=== PATIENT | female | born 1960 | race Asian ===

== ENCOUNTER 2019-04-12 05:40 | Day surgery (SDC) | payer MEDICAID ==
[2019-04-05 16:14] LABS: HEMATOCRIT 41.2 % (36-48); HEMOGLOBIN 12.8 g/dL (12.0-16.0); MEAN CORPUSCULAR HEMOGLOBIN 21 pg (27-31); MEAN CORPUSCULAR HGB CONC 31 % (32-36); MEAN CORPUSCULAR VOLUME 68 fL (79.0-98.0); PLATELET COUNT (AUTO) 295 K/uL (130-430); RED BLOOD CELL COUNT(AUTO) 6.08 MIL/uL (4.2-6.2); RED CELL DISTRIBUTION WIDTH 15.5 % (9.0-15.0); WHITE BLOOD COUNT (AUTO) 9.2 K/uL (4.8-10.8)
[2019-04-05 16:23] LABS: CALCIUM 9.1 mg/dL (8.4-11.0); CREATININE 0.83 mg/dL (0.55-1.30); POTASSIUM 4.7 mmol/L (3.5-5.1)
[2019-04-12] VITALS (12 sets, daily range): BP systolic 124–138
[~2019-04-12] VITALS: Ht 157.5 cm; Wt 68.0 kg
[~2019-04-12 05:40] MED LIST: APRE30TA2 PO; GLU500 PO; LISI1TAB9 PO
[2019-04-12] MEDS ORDERED: CEFAZOLIN SOD 2 GM in D5W 50 ML IV ONE (06:45)
[2019-04-12] MEDS ORDERED: ONDANSETRON HCL 4 MG/2 ML VIAL IVP ONE (08:00)
[2019-04-12] MEDS ORDERED: fentaNYL CITRATE 250 MCG/5 ML AMP IV ONE (08:00)
[2019-04-12] MEDS ORDERED: PROPOFOL 200MG/ 20ML VIAL (DIPRIVAN) IV ONE (08:00)
[2019-04-12] MEDS ORDERED: LIDOCAINE/EPI 1% 1:100000 20 ML VIAL INJ ONE (08:00)
[2019-04-12] MEDS ORDERED: SUCCINYLCHOLINE CHLORIDE 20 MG/ML(QUELICIN) IVP ONE (08:00)
[2019-04-12] MEDS ORDERED: DEXAMETHASONE SOD PHOSPHATE 4 MG/ML VIAL IVP ONE (08:00)
[2019-04-12] MEDS ORDERED: MIDAZOLAM HCL 5 MG/5 ML VIAL IVP ONE (08:00)
[2019-04-12] MEDS ORDERED: LR 1,000 ML IV.SOLN IV ONE (08:00)
[2019-04-12] MEDS ORDERED: NS IRRIG SOLN 1000 ML IR ONE (08:00)
[2019-04-12] MEDS ORDERED: SEVOFLURANE 15 MIN GAS INH ONE (08:00)
[2019-04-12] MEDS ORDERED: LR 1,000 ML IV SCH (11:18)
[2019-04-12] MEDS ORDERED: MORPHINE 4 MG/ML INJ. SYRINGE IVP PRN ×3 (11:30)
[2019-04-12] MEDS ORDERED: ONDANSETRON HCL 4 MG/2 ML VIAL IVP PRN ×2 (11:30→13:15)
[2019-04-12] MEDS ORDERED: HYDROcodone/ACETAMIN 5-325 MG TAB (NORCO/ VICODIN) PO PRN (13:15)
[2019-04-12] MEDS ORDERED: ONDANSETRON 4 MG ODT TAB PO PRN (13:15)
[2019-04-12] MEDS ORDERED: MORPHINE 4 MG/ML INJ. SYRINGE ONE (13:18)
[2019-04-12] MEDS ORDERED: D5W 1,000 ML IV PRN (13:23)
[2019-04-12] MEDS ORDERED: DEXTROSE 50% JECT 50 ML DISP.SYRIN IVP PRN (13:30)
[2019-04-12] MEDS ORDERED: GLUCOSE 15 GM GEL (in 37.5 GM TUBE) PO PRN (13:30)
[2019-04-12] MEDS: KCL 20 mEq in D5/0.45NS 1000mL 1,000 ML IV SCH (18:14)
[2019-04-12] MEDS: metFORMIN HCL 500 MG TABLET PO SCH (18:14)
[2019-04-12] MEDS: INSULIN REGULAR, HUMAN 100 UNITS/ML, 10 ML VIAL (humuLIN R) SUBCUT PRN ×2 (18:15→21:26)
[2019-04-12] MEDS ORDERED: NON-FORMULARY MEDICATION (Apremilast (Otezla) 30 MG) PO SCH (21:00)
[2019-04-12] MEDS: CALCIUM 500 MG/TAB PO SCH (21:04)
[2019-04-12 21:34] LABS: ALBUMIN 2.9 g/dL (3.4-4.8); CALCIUM 8.3 mg/dL (8.4-11.0)
[2019-04-13] VITALS: BP_SYST 105
[2019-04-13] MEDS: KCL 20 mEq in D5/0.45NS 1000mL 1,000 ML IV SCH ×3 (00:05→08:59)
[2019-04-13] MEDS: INSULIN REGULAR, HUMAN 100 UNITS/ML, 10 ML VIAL (humuLIN R) SUBCUT PRN (06:30)
[2019-04-13 06:32] LABS: ALBUMIN 2.8 g/dL (3.4-4.8); CALCIUM 8.4 mg/dL (8.4-11.0)
[2019-04-13] MEDS ORDERED: LEVOTHYROXINE SODIUM 0.15 MG TABLET PO SCH (07:00)
[2019-04-13] MEDS: metFORMIN HCL 500 MG TABLET PO SCH (08:11)
[2019-04-13] MEDS: CALCIUM 500 MG/TAB PO SCH (08:11)
[2019-04-13 08:13] VITALS: BP_SYST 131
[2019-04-13] MEDS ORDERED: LISINOPRIL 10 MG TABLET (PRINIVIL) PO SCH (09:00)
[2019-04-13] MEDS ORDERED: HYDROCHLOROTHIAZIDE 12.5 MG CAPSULE (HCTZ) PO SCH (09:00)
[2019-04-13 12:08] VITALS: BP_SYST 139
[2019-04-13] MEDS ORDERED: HYDR-4272 PO (13:49)
[2019-04-13] MEDS ORDERED: CALC-823 PO (13:50)
[2019-04-13] MEDS ORDERED: LEVO112T5 PO (13:50)
[2019-04-13 13:52] VITALS: BP_SYST 139
== END 2019-04-13 15:10 | disposition home or self-care (01) ==
LOC: SMU 05:40 → SDS 05:40 → EDSTATUS 07:30 → SMU 15:34 → SDS 04-13 15:10
PROVIDERS: ATTEND Otolaryngology
DX: C73 Malignant neoplasm of thyroid gland (principal); E04.2 Nontoxic multinodular goiter; E11.9 Type 2 diabetes mellitus without complications; I10 Essential (primary) hypertension; M19.90 Unspecified osteoarthritis, unspecified site; Z79.899 Other long term (current) drug therapy
CPT/HCPCS: 36415 ×2; 60240; 80048; 82040; 82310; 82962; 83970; 85025; 87081 ×2; 88307; 93005; C1782; J0330; J0690; J1100; J1815; J2250; J2270; J2405; J2704; J3010; J7060; J7120